=== PATIENT | female | born 1970 | race Caucasian/White ===

== ENCOUNTER 2018-12-17 05:44 | Day surgery (SDC) | payer OTHER, SELFPAY ==
[2018-11-12 14:50] VITALS: BMI 31.2
--- NOTE | 2018-12-16 20:38 | HP.PCM_ITS ---
History and Physical Date of Admission: 12/17/18 HISTORY OF PRESENT ILLNESS 48 year old woman presents with a soft tissue mass left upper eyelid by the eyebrow that has increased in size over the last several months. She denies any visual problems. She denies any trauma. She denies any fever. She denies any recent redness, swelling, or infection. She denies any drainage. There is some discomfort when she bumps it. She states it doesn't affect her ability to close her eyelid. She presents at this time for further evaluation and treatment. PAST MEDICAL HISTORY Anxiety Gastrointestinal problem IBS (irritable bowel syndrome) Vision problems Vitamin D deficiency PAST SURGICAL HISTORY partial hysterectomy ALLERGIES latex MEDICATIONS diphenhydramine FAMILY HISTORY Brother - History of blood clots Daughter - Severe allergy Father - Arthritis, Heart disease Mother - Arthritis, Osteoporosis Son - Severe allergy Other - Family history of skin cancer SOCIAL HISTORY Smoking Status: Never smoker alcohol intake: never substance use type: does not use REVIEW OF SYSTEMS General - Denies fever and weight loss. Has fatigue. Eyes - Denies cataracts and glaucoma. ENT - Denies nasal congestion and sore throat. Endocrine - Denies excessive thirst and urination. Skin - Denies skin cancer. Has enlarging painful soft tissue mass left upper eyelid by the eyebrow. Has family history of skin cancer. Has history of actinic damage. Musculoskeletal - Denies joint pain, joint stiffness, weakness of muscles and joints, and arthritis. Has back pain. Neuro - Denies headaches. Cardiovascular - Denies chest pain, fatigue, and shortness of breath with exertion. Psych - Denies anxiety and depression. Respiratory - Denies chronic cough and shortness of breath. Has mild seasonal asthma. Gastrointestinal - Denies nausea, vomiting. Has diarrhea and constipation from IBS. Hematologic - Denies abnormal bruising and bleeding. Genitourinary - Denies hematuria and urinary frequency. PHYSICAL EXAMINATION General - Alert and Oriented. HEENT - PERRL. EOMI. Throat is clear. On the left upper eyelid by the eyebrow is a soft tissue mass that measures 1 cm. It is mobile. No evidence of infection. Some adherence to the overlying skin. Patient is able to close her upper eyelid and elevate her upper eyelid without difficulty. No ulceration. There is some mild discomfort when she bumps it. No other suspicious lesions noted. Neck - Supple and nontender. No cervical adenopathy. No suspicious lesions noted. Lungs - Clear to auscultation. Heart - Regular rate and rhythm. Abdomen - Soft and nondistended. Extremities - FROM. No axillary adenopathy. Radial pulses are palpable. No suspicious lesions noted. Neuro - CN II-XII grossly intact. Psych - Normal mood and affect. ASSESSMENT 1. 1 cm painful soft tissue mass left upper eyelid by the eyebrow. 2. History of actinic damage. 3. Family history of skin cancer. PLAN Recommend excision of this painful soft tissue mass left upper eyelid by the eyebrow. Will send the lesion to Pathology for analysis to rule out carcinoma. Depending on the amount of skin that needs to be excised with the mass to minimize recurrence, a skin graft may be needed or adjacent skin flaps may be n eeded for reconstruction. Also if some of the eyebrow is removed, eyebrow advancement flaps would be needed to maintain eyebrow continuity. Surgery will be done on an outpatient basis under local anesthesia and IV sedation. Patient was informed of the risks and complications of the procedure including alternatives to surgery. These were discussed with the patient personally. Patient voices understanding and wishes to proceed. Some of the risks and complications were included in a form from the [employer].
--- NOTE | 2018-12-17 | LES_PTH ---
PATIENT: HAMZAH COOK LOC: [facility] [place] U#:[id number] AGE/SX: 48/F ROOM: RE12/17/[address]: Dr. Leroy Chambers MD : 1970 BED: DIS: 12/17/2018 SPEC #: [id number] RECD: 12/17/18 07:58 STATUS: BLANCA CADE #: [id number] JOSE: 12/17/18 00:[address]: Leroy Chambers DEPT: SURGICAL PATHOLOGY RECD BY: Lissa Rousseau ENTERED: 12/17/18 09:56 SP TYPE: Lesion OTHR DR: Dr. Danie Dennison MD Tissues: Skin of eyelid, NOS Procedures: Frozen Section (charge) Surgery Specimen Level IV HEADER OPERATION: Excision lesion upper eyelid, frozen section PRE-OP DIAGNOSIS: 1 cm painful soft tissue mass left upper eyelid by eyebrow TISSUE SUBMITTED: Left upper eyelid soft tissue mass, suture at 12 o'clock FROZEN SECTION DIAGNOSIS Left upper eyelid lesion, biopsy: Consistent with benign skin adnexal tumor. AM:jevon 12/17/18 Case has been reviewed in consultation with Dr. Call who concurs with the above diagnosis. 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 AM:jevon 12/18/18 COMMENT Case has been reviewed in consultation with Dr. Call who concurs with the above diagnosis. IDC:NGOC MICROSCOPIC DESCRIPTION Slides are reviewed. GROSS DESCRIPTION Received fresh for frozen section diagnosis labeled with the patient's name is a specimen designated left upper eyelid soft tissue mass. The specimen consists of a piece of hwang-white skin measuring 1 x 0.5 x 0.2 cm. The specimen is oriented by a suture at 12 o'clock. The specimen is inked as follows: 12 o'clock - black, opposite - green. The specimen is serially sectioned and submitted entirely for frozen section diagnosis in one cassette. / AM:jevon 12/17/18 TC:5 CPT: 51919, 09977
[2018-12-17 06:16] VITALS: BP 128/77; PULSE 84; RESP 16; TEMP 36.8; O2SAT 96; BMI 32.0
[2018-12-17 08:30] VITALS: BP 115/81; BP 128/77; PULSE 69; RESP 18; TEMP 36.3; O2SAT 100
[2018-12-17 08:35] VITALS: BP 120/78; BP 128/77; PULSE 70; RESP 18; O2SAT 100
[2018-12-17 08:40] VITALS: BP 119/87; BP 128/77; PULSE 81; RESP 18; O2SAT 100
--- NOTE | 2018-12-17 08:43 | PCM.OPRPT ---
Report of Operation Date of Procedure: 12/17/18 Pre-Operative Diagnosis: 1. 1 cm painful soft tissue mass left upper eyelid by the eyebrow. 2. History of actinic damage. 3. Family history of skin cancer. Post-Operative Diagnosis: 1. 1 cm painful benign adnexal tumor left upper eyelid by the eyebrow. 2. History of actinic damage. 3. Family history of skin cancer. Surgery/Procedure Performed:: Excision 1 cm painful benign adnexal tumor left upper eyelid by the eyebrow with layered closure. Description of Surgical Findings:: 48 year old woman presents with a soft tissue mass left upper eyelid by the eyebrow that has increased in size over the last several months. She denies any visual problems. She denies any trauma. She denies any fever. She denies any recent redness, swelling, or infection. She denies any drainage. There is some discomfort when she bumps it. She states it doesn't affect her ability to close her eyelid. Patient was informed of the risks and complications of the procedure including alternatives to surgery. These were discussed with the patient personally. Patient voices understanding and wishes to proceed. Some of the risks and complications were included in a form from the [employer]. Frozen section left upper eyelid by eyebrow - benign adnexal tumor and no carcinoma seen. claims customer service representative: None Type of Anesthesia:: Local MAC - xylocaine with epinephrine and IV sedation. Specimen's removed: Painful soft tissue mass left upper eyelid by eyebrow to Pathology as a frozen section. Drains: None. Estimated Blood Loss (mL): 5 ml. Description of Procedure: Patient was taken to OR in supine position and was given IV sedation. The face was prepped and draped in the usual fashion. SCD's were placed for DVT prophylaxis. Perioperative antibiotics were given intravenously. The painful soft tissue mass left upper eyelid by eyebrow was infiltrated with xylocaine and epinephrine. After waiting 5 minutes for the anesthetic to take effect, I made a horizontal elliptical incision over the mass. There was some adherence of the mass to the overlying skin. The mass was firm and adherent to the underlying muscle. The mass was dissected off the muscle. The surrounding scar tissue was also excised and sent with the painful soft tissue mass to Pathology as a frozen section for analysis to rule out carcinoma. Frozen section showed that the lesion was a benign adnexal tumor such as a pilomatrixoma and no carcinoma see. Therefore no additional tissue is necessary to be excised. No more skin needed to be excised as well, so no skin flap or skin graft reconstruction will be necessary at this time. The wound was irrigated with saline. Hemostasis was obtained with electrocautery. The length of the layered closure was 1 cm. I closed the wound in a layered fashion using 5-0 Monocryl interrupted sutures for the deep dermis and subcutaneous tissue. The skin was approximated with 6-0 Prolene simple interrupted sutures. Antibiotic ointment was applied to the suture line. Patient tolerated the procedure well and was sent to PACU in satisfactory condition. Patient will be sent home on antibiotics and pain medication. She will keep her head elevated during the initial postop period. Patient will followup in a week for a wound check and for discussion of the pathology report and for removal of the sutures. Grafts/Implants Used: None. - Complications None. - Admit VTE Documentation VTE Present on Admission: No VTE Mechan Device Prophylaxis: SCD's VTE Pharm Prophylaxis ordered?: No Code Visit Surgery Charges CPT - 93693 ICD-10 - R22.0, R20.8, D23.121, Z80.8
[2018-12-17 08:45] VITALS: BP 118/79; BP 128/77; PULSE 77; RESP 18; TEMP 36.1; O2SAT 100
--- NOTE | 2018-12-17 08:52 | DCINST_ITS ---
You will use the following diet at home:: No restrictions Discharge Activity: May not drive while taking narcotic pain medications., May Shower - in two days., - - keep head elevated. no heavy lifting. May shower in (days): 2 May resume sexual activity in: No Restrictions Ice area for (Minutes): 5 - as needed for facial swelling. Weight Bearing Status: Weight bearing as tolerated Lifting Restrictions: 20 lbs. Keep extremity elevated above heart level: - - elevate head. Call your doctor if your incision/area has: Continuous Slow Oozing, Sudden Increased Bleeding, Increased Pain/ Swelling, Increased Redness, Foul Smelling Discharge, Swelling at the incision site Call your doctor if you observe: Fever of 101 or Higher, Coldness, Increased Pain, Shortness of breath, Chest pain, Calf discomfort, Uncontrolled pain Suture Line Care: - - apply antibiotic ointment to suture line daily. Cleanse incision/area with: - - may get incision wet in the shower in two days. Allergies/Adverse Reactions: Allergies latex Adverse Reaction (Intermediate, Verified 12/09/18 14:30) RASH DENTIST TOUCHED FACE WITH GLOVES ON AND BROKE OUT IN A RASH ON THE FACE Medications to take at Discharge diphenhydramine 25 mg capsule 25 mg PO QHS PRN 11/12/18 Cholecalciferol (Vitamin D3) [Vitamin D3] 2,000 unit PO DAILY 12/09/18 Esomeprazole Magnesium [Nexium] 20 mg PO PRN PRN 12/09/18 Levocetirizine Dihydrochloride [Xyzal] 5 mg PO DAILY 12/09/18 Clindamycin HCl [Cleocin] 300 mg PO TID #12 cap 12/17/18 Oxycodone HCl/Acetaminophen [Percocet 5/325] 1 tab PO 4X/DAY PRN PRN 5 Days #20 tab 12/17/18 The following prescriptions were given: Clindamycin HCl [Cleocin] 300 mg PO TID #12 cap Prescription Printed Oxycodone HCl/Acetaminophen [Percocet 5/325] 1 tab PO 4X/DAY PRN PRN 5 Days #20 tab PRN Reason: Pain Prescription Printed Primary Care Physician: Danie Dennison [Primary Care Provider] - Test Results: Test results from this visit will be discussed in further detail at your follow- up appointment, if applicable. Please Follow Up With: Leroy Chambers MD When: one week. call [phone] for appt. Proposed Discharge Date: 12/17/18
[2018-12-17 09:35] VITALS: BP 128/77
== END 2018-12-17 09:48 | disposition home or self-care (01) ==
LOC: SDC 05:46 → AC 05:53
PROVIDERS: Visit Provider Surgery
PROC: (CPT 21011; principal; 2018-12-17 07:15)
DX: D23.121 Other benign neoplasm of skin of left upper eyelid, including canthus (principal); R22.0 Localized swelling, mass and lump, head; R20.8 Other disturbances of skin sensation; Z80.8 Family history of malignant neoplasm of other organs or systems; K58.9 Irritable bowel syndrome, unspecified
CPT/HCPCS: 00300; 21011; 88305; 88331; J7120